=== PATIENT | female | born 1985 | race Asian ===

== ENCOUNTER 2018-11-11 16:46 | Emergency (ER) | payer BC ==
[~2018-11-11] VITALS: Ht 167.6 cm; Wt 66.7 kg
[2018-11-11 17:01] VITALS: Ht 167.6 cm; Wt 66.7 kg
[2018-11-11 18:12] LABS: BASOPHIL % 0.2 % (0-2); PLATELET COUNT 288 x10^3mcL (130-400)
[2018-11-11 19:50] VITALS: BP 120/83
== END 2018-11-11 19:50 | disposition home or self-care (01) ==
LOC: ED 16:46
PROVIDERS: Emergency Medicine
DX: O04.80 (Induced) termination of pregnancy with unspecified complications (principal)
CPT/HCPCS: 36415